=== PATIENT | female | born 1955 | race Caucasian/White ===

== ENCOUNTER 2018-03-12 10:37 | Inpatient (IN) | payer BC ==
[~2018-03-12] VITALS: Ht 154.9 cm; Wt 83.7 kg
[~2018-03-12 10:37] MED LIST: ACIDOPHILUS1 EAC2 PO; ALL DAY ALLERGY10 M2 PO; ALPRAZOLAM ER2 MG PO; AMBIEN10 MG PO; ANUCORT-HC25 MG PR; ATIVAN; ATIVAN0.5 MG PO; ATIVAN1 MG PO; Ativan PO; BACTRIM,SEPT1 TABLET PO; CALTRATE 6001 TABLET PO; CLEOCIN150 MG; CLEOCIN150 MG PO; CLONAZEPAM0.5 MG PO; COMPAZINE10 MG PO; COUMADIN4 MG PO; COUMADIN5 MG PO; CUBICIN500 MG/10 IV; CYMBALTA60 MG PO; Claritin,Alavart PO; Cleocin IV; Coumadin,Jantoven PO; DEXILANT60 MG; DEXILANT60 MG PO; Diflucan PO; Dilaudid PO; ESCITALOPRAM OX10 MG; FLUOXETINE HCL20 MG PO; HYDROCODON-ACE1 EAC9; HYDROXYZINE PAM25 MG PO; JANTOVEN5 MG; JANTOVEN5 MG PO; LEXAPRO; LEXAPRO10 MG PO; LIDODERM 5% P1 PATCH TD; LORAZEPAM0.5 MG PO; LORAZEPAM1 MG; LOVENOX100 MG/1 M SC; LOVENOX80 MG/0.8 SC; Lexapro PO; Lovenox SC; Medrol Dosepak PO; NEXIUM40 MG PO; Omega III EPA + DHA PO; PROMACTA25 MG PO; PROMETHAZINE HC25 M1; PROMETHAZINE HC25 M1 PO; PROZAC10 MG PO; PROZAC20 MG PO; PROzac PO; PT/INR 0; Pyridoxine,Vitamin B PO; RANITIDINE HCL150 M1 PO; RANITIDINE HCL150 MG; RANITIDINE HCL150 MG PO; SERTRALINE HCL100 MG PO; TRIAMCINOLONE A15 GM TP; VISTARIL; VISTARIL25 M1 PO; VISTARIL25 MG PO; VITAMIN B-1250 MCG PO; VITAMIN B-6250 MG PO; VITAMIN D400 UNIT PO; XANAX XR2 MG PO; XANAX0.5 MG PO; XANAX2 MG PO; ZANTAC; ZANTAC150 M1 PO; ZANTAC150 MG PO; ZOLOFT100 M1 PO; ZOLOFT100 MG PO; ZOLPIDEM TARTRAT5 MG PO; ZYRTEC; ZYRTEC10 M2 PO; ZYRTEC10 M3 PO; domperidone; xanax PO
[2018-03-12 11:09] LABS: HEMATOCRIT 39.5 % (36.0-46.0); HEMOGLOBIN 13.8 G/DL (11.9-15.5); MCH 31.4 PG (29.0-34.0); MCHC 34.9 G/DL (30.0-36.0); MCV 89.8 FL (83-99); PLATELET COUNT 195 K/uL (156-360); RBC DIS.WIDTH-CV 12.1 % (11.8-14.6); RBC DIS.WIDTH-SD 39.6 % (39-53); WHITE BLOOD COUNT 6.6 K/uL (4.1-10.2)
[2018-03-12 11:47] LABS: TROP-I INTERPRETATION NEGATIVE; TROPONIN-I < 0.01 ng/mL (0.0-0.30)
[2018-03-12 11:57] LABS: CHLORIDE 105 MEQ/L (99-109); CREATININE 0.9 MG/DL (0.6-1.3); GFR ESTIMATE (CALCULATED) > 59 mL/min/; GLUCOSE 113 mg/dL (70-99); POTASSIUM 3.7 MEQ/L (3.7-5.4); SODIUM 138 MEQ/L (136-147); UREA NITROGEN (BUN) 9 mg/dL (9-23)
[2018-03-12] MEDS ORDERED: VISTARIL25 MG PO (14:58)
[2018-03-12] MEDS ORDERED: PRILOSEC10 MG PO (14:58)
[2018-03-12] MEDS ORDERED: DOMP10T PO (14:58)
[2018-03-12] MEDS ORDERED: PROZAC40 MG PO (14:58)
[2018-03-12 17:07] VITALS: BP 148/65
[2018-03-12 18:13] LABS: TROP-I INTERPRETATION NEGATIVE; TROPONIN-I 0.04 ng/mL (0.0-0.30)
[2018-03-12 18:58] VITALS: BP 123/70
[2018-03-12 23:44] LABS: TROP-I INTERPRETATION NEGATIVE; TROPONIN-I 0.05 ng/mL (0.0-0.30)
[2018-03-13 00:15] VITALS: BP 133/69
[2018-03-13 07:50] VITALS: BP 145/71
[2018-03-13 08:03] LABS: TROP-I INTERPRETATION NEGATIVE; TROPONIN-I 0.05 ng/mL (0.0-0.30)
[2018-03-13 08:17] LABS: CHLORIDE 107 MEQ/L (99-109); CREATININE 0.9 MG/DL (0.6-1.3); GFR ESTIMATE (CALCULATED) > 59 mL/min/; GLUCOSE 95 mg/dL (70-99); POTASSIUM 3.7 MEQ/L (3.7-5.4); SODIUM 139 MEQ/L (136-147); UREA NITROGEN (BUN) 7 mg/dL (9-23)
[2018-03-13 15:30] LABS: TROP-I INTERPRETATION NEGATIVE; TROPONIN-I 0.04 ng/mL (0.0-0.30)
[2018-03-13 15:40] VITALS: BP 131/87
[2018-03-13 22:17] LABS: TROP-I INTERPRETATION NEGATIVE; TROPONIN-I 0.03 ng/mL (0.0-0.30)
[2018-03-13 23:19] VITALS: BP 135/70
[2018-03-14 03:02] VITALS: BP 112/56
[2018-03-14 07:08] LABS: BASOPHIL (%) 0.5 % (0-1); EOSINOPHIL (%) 2.3 % (0-5); EOSINOPHIL COUNT 0.1 K/uL (0-0.3); HEMATOCRIT 38.2 % (36.0-46.0); HEMOGLOBIN 12.5 G/DL (11.9-15.5); LYMPHOCYTE (%) 48.5 % (15-42); LYMPHOCYTE COUNT 1.9 K/uL (1.0-2.8); MCH 30.3 PG (29.0-34.0); MCHC 32.7 G/DL (30.0-36.0); MCV 92.7 FL (83-99); MONOCYTE (%) 7.6 % (3-12); MONOCYTE COUNT 0.3 K/uL (0-0.8); NEUTROPHIL (%) 41.1 % (45-76); NEUTROPHIL COUNT 1.6 K/uL (1.8-6.4); PLATELET COUNT 157 K/uL (156-360); RBC DIS.WIDTH-CV 12.4 % (11.8-14.6); RBC DIS.WIDTH-SD 42.1 % (39-53); RED BLOOD COUNT 4.12 M/uL (3.80-5.20); WHITE BLOOD COUNT 3.9 K/uL (4.1-10.2)
[2018-03-14 07:31] LABS: CHLORIDE 106 MEQ/L (99-109); POTASSIUM 4.3 MEQ/L (3.7-5.4); SODIUM 139 MEQ/L (136-147)
[2018-03-14 07:36] LABS: CREATININE 0.8 MG/DL (0.6-1.3); GFR ESTIMATE (CALCULATED) > 59 mL/min/; GLUCOSE 105 mg/dL (70-99); UREA NITROGEN (BUN) 9 mg/dL (9-23)
[2018-03-14 07:52] VITALS: BP 118/60
[2018-03-14 16:14] VITALS: BP 127/78
[2018-03-14 23:02] VITALS: BP 115/77
[2018-03-15 03:13] VITALS: BP 113/53
[2018-03-15 07:48] VITALS: BP 1329/95
[2018-03-15 11:26] VITALS: BP 147/87
[2018-03-15 19:30] VITALS: BP 116/54
[2018-03-15 20:00] VITALS: BP 116/54
[2018-03-15 23:56] VITALS: BP 112/53
[2018-03-16 04:00] VITALS: BP 106/52
[2018-03-16 08:29] VITALS: BP 139/90
[2018-03-16 09:34] LABS: HEMATOCRIT 35.8 % (36.0-46.0); HEMOGLOBIN 12.1 G/DL (11.9-15.5); MCHC 33.8 G/DL (30.0-36.0); MCV 91.8 FL (83-99); PLATELET COUNT 158 K/uL (156-360); RBC DIS.WIDTH-CV 12.9 % (11.8-14.6); RBC DIS.WIDTH-SD 42.9 % (39-53); WHITE BLOOD COUNT 8.6 K/uL (4.1-10.2)
[2018-03-16 10:20] LABS: CHLORIDE 108 MEQ/L (99-109); CREATININE 0.7 MG/DL (0.6-1.3); GFR ESTIMATE (CALCULATED) > 59 mL/min/; GLUCOSE 109 mg/dL (70-99); POTASSIUM 3.8 MEQ/L (3.7-5.4); SODIUM 140 MEQ/L (136-147); UREA NITROGEN (BUN) 11 mg/dL (9-23)
[2018-03-16] MEDS ORDERED: CLOPIDOGREL75 MG PO (11:04)
[2018-03-16] MEDS ORDERED: ASPIR-LOW81 MG PO (11:05)
[2018-03-16] MEDS ORDERED: PRIMIDONE50 MG PO (11:05)
[2018-03-16] MEDS ORDERED: MITRAZOL 2% CRE45 GM TP (11:06)
[2018-03-16 11:30] VITALS: BP 121/59
== END 2018-03-16 12:52 | disposition home or self-care (01) | DRG 247 ==
LOC: EME 10:37 → EDOF 14:55 → 4SOUTH 14:55 → ENRESERV 14:56 → 4SOUTH 16:57 → ENRESERV 03-15 10:44 → 4SOUTH 03-15 19:04 → 4EAST 03-15 19:15
PROVIDERS: Emergency Medicine; Internal Medicine; Nurse Practitioner Adult Health
DX: R07.89 Other chest pain (principal); I25.10 Atherosclerotic heart disease of native coronary artery without angina pectoris; K31.84 Gastroparesis; N13.30 Unspecified hydronephrosis; R16.0 Hepatomegaly, not elsewhere classified; K76.0 Fatty (change of) liver, not elsewhere classified; B36.9 Superficial mycosis, unspecified; R25.1 Tremor, unspecified; I10 Essential (primary) hypertension; E78.5 Hyperlipidemia, unspecified; F32.9 Major depressive disorder, single episode, unspecified; F41.9 Anxiety disorder, unspecified; K21.9 Gastro-esophageal reflux disease without esophagitis; E66.9 Obesity, unspecified; Z68.34 Body mass index [BMI] 34.0-34.9, adult; I25.2 Old myocardial infarction; Z86.718 Personal history of other venous thrombosis and embolism; Z86.73 Personal history of transient ischemic attack (TIA), and cerebral infarction without residual deficits; Z91.041 Radiographic dye allergy status
CPT/HCPCS: 71046; 74176; 78452; 78582; 80048; 84484; 85025; 85027; 85347; 85379; 93005; 93017; 99281; 99285; A9500; A9540; A9567; C1725; C1769; C1874; C1887; G0378; J1200; J1644; J1650; J2250; J2405; J2785; J2930; J3010; J7030; J7512; Q0177; S0028

== ENCOUNTER 2018-06-22 19:17 | Emergency (ER) | payer BC ==
[~2018-06-22] VITALS: Ht 152.4 cm; Wt 79.7 kg
[~2018-06-22 19:17] MED LIST changes: +ASPIR-LOW81 MG PO; +CLOPIDOGREL75 MG PO; +DOMP10T PO; +MITRAZOL 2% CRE45 GM TP; +PRILOSEC10 MG PO; +PRIMIDONE50 MG PO; +PROZAC40 MG PO
[2018-06-22 19:58] LABS: HEMATOCRIT 38.1 % (36.0-46.0); MCH 30.9 PG (29.0-34.0); MCHC 34.1 G/DL (30.0-36.0); MCV 90.5 FL (83-99); PLATELET COUNT 185 K/uL (156-360); RBC DIS.WIDTH-CV 12.6 % (11.8-14.6); RBC DIS.WIDTH-SD 41.1 % (39-53); RED BLOOD COUNT 4.21 M/uL (3.80-5.20); WHITE BLOOD COUNT 6.4 K/uL (4.1-10.2)
[2018-06-22 20:10] LABS: ALBUMIN 4.3 g/dL (3.2-4.8); CHLORIDE 107 mEq/L (99-109); POTASSIUM 3.7 mEq/L (3.7-5.4); SODIUM 141 mEq/L (136-147)
[2018-06-22 20:13] LABS: GLUCOSE 162 mg/dL (70-99); TOTAL PROTEIN 7.1 g/dL (6.4-8.3)
[2018-06-22 20:15] LABS: TOTAL BILIRUBIN 0.5 mg/dL (0.0-1.0)
[2018-06-22 20:16] LABS: ALKALINE PHOSPHATASE 89 IU/L (3-129); GFR ESTIMATE (CALCULATED) > 59 mL/min/
[2018-06-22 20:17] LABS: UREA NITROGEN (BUN) 7 mg/dL (9-23)
[2018-06-22 20:18] LABS: AST (GOT) 37 IU/L (2-34)
[2018-06-22 20:19] LABS: ALT (GPT) 44 IU/L (3-49)
[2018-06-22] MEDS ORDERED: TESSALON PERLE100 MG PO (21:39)
[2018-06-22 22:15] VITALS: BP 119/89
== END 2018-06-22 22:15 | disposition home or self-care (01) ==
LOC: EXP 19:17 → EME 19:17 → EXP 22:15
PROVIDERS: Physician Assistant
DX: J06.9 Acute upper respiratory infection, unspecified (principal); J45.909 Unspecified asthma, uncomplicated; E78.5 Hyperlipidemia, unspecified; K21.9 Gastro-esophageal reflux disease without esophagitis; M79.7 Fibromyalgia; K31.84 Gastroparesis; F41.9 Anxiety disorder, unspecified; F32.9 Major depressive disorder, single episode, unspecified; I25.2 Old myocardial infarction; Z86.718 Personal history of other venous thrombosis and embolism; Z86.73 Personal history of transient ischemic attack (TIA), and cerebral infarction without residual deficits; Z90.49 Acquired absence of other specified parts of digestive tract; Z88.6 Allergy status to analgesic agent; Z88.1 Allergy status to other antibiotic agents; Z88.0 Allergy status to penicillin; Z88.5 Allergy status to narcotic agent; Z88.8 Allergy status to other drugs, medicaments and biological substances; Z91.041 Radiographic dye allergy status
CPT/HCPCS: 71046; 80053; 85027; 87502; 94640; 99281; 99285